=== PATIENT | male | born 1985 ===

== ENCOUNTER 2025-04-12 18:10 | Emergency (ER) | payer BC ==
[2025-04-12] MEDS: Ondansetron 4 MG/2 ML SDV IVPUSH ONE (18:43)
[2025-04-12] MEDS: Ketorolac 30 MG/ML SDV IVPUSH ONE (18:44)
[2025-04-12] MEDS: Acetaminophen/HYDROcodone 325-5 MG Tab PO ONE (18:49)
[2025-04-12] MEDS: Acetaminophen/oxyCODONE 325-5 MG Tab PO ONE (18:54)
== END 2025-04-12 19:45 | disposition home or self-care (01) ==
LOC: JD.ED 18:10
DX: K61.0 Anal abscess (principal); E78.00 Pure hypercholesterolemia, unspecified; E11.9 Type 2 diabetes mellitus without complications; Z79.82 Long term (current) use of aspirin; Z79.899 Other long term (current) drug therapy; Z86.16 Personal history of COVID-19
CPT/HCPCS: 96365; 96375; 99283; A9270; J0696; J1885; J2405; 99284